=== PATIENT | male | born 1965 | race Two or more races ===

== ENCOUNTER 2024-02-04 21:45 | Emergency (ER) | payer OTHER ==
[~2024-02-04] VITALS: Ht 167.6 cm; Wt 104.5 kg
[2024-02-04 21:57] VITALS: BP 164/94; PULSE 107; RESP 1; TEMP 98
[2024-02-04] MEDS: HYDROCODONE/ACETAMINOPHEN 10-325 MG TABLET PO ONE (23:14)
[2024-02-05] MEDS ORDERED: HYDR-4062 PO (00:12)
[2024-02-05] MEDS ORDERED: ONDA-104 PO (00:12)
[2024-02-05] MEDS ORDERED: IBUP-1492 PO (00:12)
== END 2024-02-05 01:24 | disposition home or self-care (01) ==
LOC: EMS 21:48
DX: S52.591A Other fractures of lower end of right radius, initial encounter for closed fracture (principal); W07.XXXA Fall from chair, initial encounter; Y93.89 Activity, other specified; Y92.89 Other specified places as the place of occurrence of the external cause; Y99.8 Other external cause status
CPT/HCPCS: 73200; 99284; 73110-TC; 73130-TC; Z7502; Z7610